=== PATIENT | female | born 1970 | race Caucasian/White ===

== ENCOUNTER → 2017-01-21 | Outpatient (CLI) | payer BC ==
--- NOTE | 2017-01-21 15:57 | PCVCIMAG ---
APPROVED REPORT Study performed: 01/21/2017 14:27:18 EXAM: Comprehensive 2D, Doppler, and color-flow Echocardiogram Patient Location: Echo lab Status: routine BSA: 2.13 HR: 78 bpm Other Information Study Quality: Adequate Indications Dyspnea Chest Pain 2D Dimensions IVSd: 8.98 (7-11mm)LVOT Diam: 20.76 (18-24mm) LVDd: 47.50 mm PWd: 8.67 (7-11mm)Ascending Ao: 31.67 (22-36mm) LVDs: 41.78 (25-40mm) Left Atrium: 38.69 (27-40mm) Aortic Root: 33.51 mm LV Single Plane 4CH: 52.00 % LV Single Plane 2CH: 54.80 %Garcia's LVEF: 53.40 % Biplane EF: 53.9 % Volumes Left Atrial Volume (Systole) Single Plane 4CH: 39.76 mLSingle Plane 2CH: 34.55 mL LA ESV Index: 19.00 mL/m2 Aortic Valve AoV Peak Dorian.: 1.59 m/s AO Peak Gr.: 10.06 mmHgLVOT Max P.70 mmHg LVOT Max V: 0.96 m/s SILVIA Vmax: 2.05 cm2 Mitral Valve E/A Ratio: 1.0 MV Decel. Time: 223.20 ms MV E Max Dorian.: 1.05 m/s MV A Dorian.: 1.01 m/s IVRT: 83.04 ms TDI E/Lateral E': 0.17E/Medial E': 0.17 Medial E' Dorian.: 6.00 m/s Lateral E' Dorian.: 6.00 m/s Pulmonary Valve PV Peak Gr.: 0.96 mmHg Pulmonary Vein P Vein S: 0.60 m/sP Vein A: 0.38 m/s P Vein D: 0.62 m/sP Vein A Dur.: 69.2 msec P Vein S/D Ratio: 0.97 Left Ventricle The left ventricle is normal size. There is normal LV segmental wall motion. There is normal left ventricular wall thickness. Left ventricular systolic function is normal. The left ventricular ejection fraction is within the normal range. LVEF is 60%. Right Ventricle The right ventricle is normal size. The right ventricular systolic function is normal. Atria The left atrium size is normal. The right atrium size is normal. Aortic Valve The aortic valve is normal in structure. No aortic regurgitation is present. There is no aortic valvular stenosis. Mitral Valve The mitral valve is normal in structure. There is no mitral valve regurgitation noted. No evidence of mitral valve stenosis. Tricuspid Valve The tricuspid valve is normal in structure. There is no tricuspid valve regurgitation noted. Pulmonic Valve The pulmonary valve is normal in structure. There is no pulmonic valvular regurgitation. Great Vessels The aortic root is normal in size. IVC is normal in size and collapses with >50% inspiration Pericardium There is no pericardial effusion. <Conclusion> The left ventricle is normal size. Left ventricular systolic function is normal. The right ventricle is normal size. The left atrium size is normal. The aortic valve is normal in structure. There is no mitral valve regurgitation noted. There is no pericardial effusion.
--- NOTE | 2017-01-21 16:01 | PCVCIMAG ---
APPROVED REPORT Exam: Stress Echocardiogram Indication: Chest pain, Dyspnea Patient Location: Echo lab Stress Nurse: Ankita Randolph RN Status: routine Ht: 5 ft 5 in HR: 78 bpm BP: 127/70 mmHg Procedure The patient underwent an Exercise Stress Test using the Rashard Protocol. Blood pressure, heart rate, and EKG were monitored. An Echocardiogram was performed by design technician in four stages in quad fashion. At peak stress, four selected images were obtained and placed side by side with resting images for comparison. Stress Test Details Stress Test: Exercise stress testing was performed using a Rashard protocol. HR Resting HR: 112 bpmMax Heart Rate (APMHR): 176 bpm Max HR Achieved: 160 bpmTarget HR (85% APMHR): 149 bpm % of APMHR: 90 HR response to stress: Normal HR response to stress BP Resting BP: 128/80 mmHg Max BP: 160/78 mmHg ECG Resting ECG: Sinus Rhythm Stress ECG: Sinus Rhythm ST Change: Non-ischemic Clinical Reason for Termination: Maximal effort Exercise duration: 4 min 49 sec Highest Stage Achieved: Stage 2: 2.5 mph at 12% grade. Exercise capacity: 7.00 METs Pre-Stress Echo The resting Echocardiogram showed normal left ventricular contractility with an estimated Ejection Fraction of about 55-60%. Normal wall motion in all segments on baseline images. Post-Stress Echo The stress Echocardiogram showed normal left ventricular contractility with an estimated Ejection Fraction of about 60-65%. Normal augmentation of wall motion in all segments on post stress images. Clinical No clinical or ECG evidence for ischemia. Conclusion Clinical Response: Non-ischemic Exercise Capacity: Below Average Stress ECG Response: Non-ischemic Stress Echo Images: Non-ischemic The left ventricle is normal in size and wall thickness in both the rest and stress images. <Conclusion> The left ventricle is normal in size and wall thickness in both the rest and stress images.
== END | disposition home or self-care (01) ==
LOC: PCVCIMAG 14:20
PROVIDERS: ATTEND Internal Medicine Cardiovascular Disease
DX: R07.9 Chest pain, unspecified (principal); R60.9 Edema, unspecified; R06.09 Other forms of dyspnea; G47.33 Obstructive sleep apnea (adult) (pediatric); F41.9 Anxiety disorder, unspecified; J45.909 Unspecified asthma, uncomplicated; Z88.8 Allergy status to other drugs, medicaments and biological substances; Z79.899 Other long term (current) drug therapy; Z90.710 Acquired absence of both cervix and uterus; Z90.721 Acquired absence of ovaries, unilateral
CPT/HCPCS: 93306; 93351; G0463